=== PATIENT | male | born 1960 | race Caucasian/White ===

== ENCOUNTER 2020-08-13 01:23 | Emergency (ER) | payer OTHER, SELFPAY ==
[2020-08-13 01:42] VITALS: BP 124/75; PULSE 78; RESP 22; TEMP 37.3; O2SAT 95; BMI 41.1
[2020-08-13 01:54] VITALS: BP 127/77; PULSE 74; RESP 20; O2SAT 93
--- NOTE | 2020-08-13 01:57 | XR_ITS ---
PROCEDURE: XR CHEST 2V CLINICAL HISTORY: SOA Covid19 positive COMPARISON: CT CT ANGIO CHEST from 08/13/2020 FINDINGS: The cardiomediastinal silhouette and pulmonary vascularity are within normal limits. There are scattered bilateral multi focal areas of ground-glass infiltrates consistent with Covid19 pneumonia. Mild atelectatic changes are present in the left lower lobe. No acute bony abnormalities. IMPRESSION: There are scattered bilateral multi focal areas of ground-glass infiltrates consistent with Covid19 pneumonia. Mild atelectatic changes are present in the left lower lobe Dictated by: Keshawn Martins MD 08/13/2020 05:12 Keshawn Martins MD in [facility] 08/13/2020 05:12
--- NOTE | 2020-08-13 02:00 | CT_ITS ---
PROCEDURE: CT ANGIO CHEST CLINCIAL INDICATION: SOA w/ COVID 19 COMPARISON: No exams were available for comparison TECHNIQUE: IV Contrast: 70ML Isovue 370 Axial images obtained with sagittal and coronal reformats. All CT scans at the facility use one or more dose reduction, viz: automated exposure control, ma/kV adjustment per patient size (including targeted exams where dose is matched to indication, i.e. head), or iterative reconstruction technique. FINDINGS: HEART AND MEDIASTINAL STRUCTURES: No evidence of pulmonary embolus. There is mild dilatation the ascending thoracic aorta measuring up to 4 cm. No evidence of aortic dissection. There are few small mediastinal lymph nodes. LUNGS AND PLEURAL SPACES: Multifocal areas of ground-glass infiltrates. Consolidation noted in the lower lobes posteriorly. Atelectasis/fibrotic bands in the lingula. These findings are consistent with Covid19 pneumonia. No effusions or cavitation BONY STRUCTURES: No acute bony abnormalities apparent. UPPER ABDOMEN: Unremarkable. ADDITIONAL FINDINGS: Gynecomastia IMPRESSION: Findings compatible with Covid19 pneumonia. No evidence of pulmonary embolus. Dictated by: Keshawn Martins MD 08/13/2020 05:37 Keshawn Martins MD in [facility] 08/13/2020 05:37
--- NOTE | 2020-08-13 02:09 | ECG_ITS ---
APPROVED REPORT Exam: Resting ECG HR:76 bpm ECG Measurements Heart Rate 76 AXES MD 224 P 45 QRSd 106 QRS 29 QT 370 T 46 QTc 416 Conclusion Sinus rhythm with 1st degree AV block Otherwise normal ECG Electronically signed by : Lester Ribeiro, 08/13/2020 18:02:02
[2020-08-13 02:16] LABS: Chloride 100 mmol/L (98-107); Potassium 4.2 mmoL/L (3.5-5.1); Sodium 133 mmol/L (136-145)
[2020-08-13 02:19] LABS: Alanine Aminotransferase 29 U/L (12-78); Albumin Level 4.3 g/dl (3.5-5.0); Albumin/Globulin Ratio 1.3 (1.1-1.8); Alkaline Phosphatase 92 U/L (38-126); Anion Gap 11.2 mEq/L (5-15); Aspartate Amino Transferase 38 U/L (17-59); Bilirubin,Total 0.5 mg/dl (0.2-1.3); Blood Urea Nitrogen 17 mg/dl (9-20); Calcium 9.4 mg/dl (8.4-10.2); Carbon Dioxide 26 mmol/L (22.0-30.0); Creatinine Clearance Estimated 128 mL/min (50-200); Estimated Glomerular Filt Rate 86 ml/min (>60); GFR (African American) 105 ML/MIN (>60); Globulin 3.3 g/dL (1.3-3.2); Glucose 186 mg/dl (74-100); Total Protein,Serum 7.6 g/dl (6.3-8.2)
[2020-08-13 02:23] LABS: Basophils # 0.1 K/mm3 (0-0.2); Basophils % 0.6 % (0.1-2.0); Eosinophils % 0.1 % (0.1-12.0); Hematocrit 46.4 % (42.0-52.0); Hemoglobin 15.7 g/dL (14.1-18.0); Lymphocytes # 1.5 K/mm3 (0.7-4.5); Lymphocytes % 17.5 % (10-50); Mean Corpuscular HGB Conc 33.8 g/dL (31.8-35.4); Mean Corpuscular Hemoglobin 30.1 pg (27.0-31.2); Mean Corpuscular Volume 89.1 fl (80-94); Monocytes # 0.4 K/mm3 (0.1-1.0); Monocytes % 5.1 % (1.7-9.3); Neutrophils # 6.4 K/mm3 (1.8-7.8); Neutrophils % 76.5 % (37.0-80.0); Platelet Count 270 K/mm3 (142-424); Red Cell Distribution Width 13.3 % (11.5-17.5); White Blood Count 8.3 K/mm3 (4.8-10.8)
[2020-08-13 02:25] LABS: C-Reactive Protein 37.7 mg/L (0-4)
[2020-08-13 02:34] LABS: Troponin I < 0.01 ng/ml (0.00-0.034)
[2020-08-13 02:36] LABS: Procalcitonin 0.115 ng/mL (0.0-2.0)
--- NOTE | 2020-08-13 02:37 | HMH.EDHA ---
ED Disposition Clinical Impression: Pneumonia due to COVID-19 virus Headache Qualifiers: Headache type: unspecified Headache chronicity pattern: acute headache Intractability: not intractable Qualified Code(s): R51.9 - Headache, unspecified Disposition: Home, Self-Care Condition on Discharge: Good Instructions: DI for COVID-19 (Suspected or Confirmed ) Additional Instructions: fluids and call your pcp for follo wup Referrals: PCP,No [Primary Care Provider] - - Critical Care Critical Care Time: No Attestation: On 08/13/20, the high probability of a clinically significant, sudden or life threatening deterioration of the following system(s) required my full and direct attention, intervention and personal management. The time I documented below is in addition to time spent performing reported procedures but includes the following listed in this critical care notation. Medical Decision Making - Medical Records Medical records reviewed: Yes: I reviewed the patient's medical records. - Ramesh Inquiry Pt receiving controlled substance: No Vital Signs: 08/13/20 01:42 08/13/20 01:54 08/13/20 02:54 Temperature 99.1 F Temperature Source Oral Pulse Rate [Right] 78 74 64 Respiratory Rate 22 20 18 Blood Pressure [Right Arm] 124/75 127/77 141/79 H Blood Pressure Mean [Right Arm] 91 93 99 Blood Pressure Source [Right Arm] Automatic Cuff Automatic Cuff Automatic Cuff Blood Pressure Position [Right Arm] Supine Sitting Sitting 02 Sat by Pulse Oximetry 95 93 L 94 L Oxygen Delivery Method Room Air Room Air Room Air 08/13/20 03:30 08/13/20 04:00 Temperature Temperature Source Pulse Rate [Right] 74 69 Respiratory Rate 17 17 Blood Pressure [Right Arm] 105/58 L 111/65 Blood Pressure Mean [Right Arm] 73 80 Blood Pressure Source [Right Arm] Automatic Cuff Automatic Cuff Blood Pressure Position [Right Arm] Sitting Sitting 02 Sat by Pulse Oximetry 92 L 93 L Oxygen Delivery Method Room Air Room Air - Lab Data Lab results reviewed: Yes: I reviewed the patient's lab results. Lab Results 08/13/20 01:50: WBC 8.3, RBC 5.20, Hgb 15.7, Hct 46.4, MCV 89.1, MCH 30.1, MCHC 33.8, RDW 13.3, Plt Count 270, MPV 8.0, Neut % (Auto) 76.5, Lymph % (Auto) 17.5, [place] % (Auto) 5.1, Eos % (Auto) 0.1, Baso % (Auto) 0.6, Neut # (Auto) 6.4, Lymph # (Auto) 1.5, [place] # (Auto) 0.4, Eos # (Auto) 0.0, Baso # (Auto) 0.1 08/13/20 01:50: Sodium 133 L, Potassium 4.2, Chloride 100, Carbon Dioxide 26, Anion Gap 11.2, BUN 17, Creatinine 0.90, Estimated Creat Clear 128, Estimated GFR 86, Est GFR ( Amer) 105, Glucose 186 H, Calcium 9.4, Total Bilirubin 0.5, AST 38, ALT 29, Alkaline Phosphatase 92, Troponin I < 0.01, C-Reactive Protein 37.7 H, Total Protein 7.6, Albumin 4.3, Globulin 3.3 H, Albumin/Globulin Ratio 1.3 08/13/20 01:50: SARS-CoV-2 IgG Ab (Rapid) Negative, SARS-CoV-2 IgM Ab (Rapid) Negative 08/13/20 01:50: ESR 19 08/13/20 01:50: Procalcitonin 0.115 Result diagrams: 08/13/20 01:50 08/13/20 01:50 Orders (Tests/Meds): ED MEDICATIONS Generic Name Dose Route Start Last Admin Trade Name Freq PRN Reason Stop Dose Admin Sodium Chloride 1,000 mls @ 999 mls/hr 08/13/20 02:00 08/13/20 01:58 Sod Chlor 0.9% 1000ml Bag IV 08/13/20 03:00 999 mls/hr .Q1H1M AYESHA Administration Discontinued Medications Generic Name Dose Route Start Last Admin Trade Name Freq PRN Reason Stop Dose Admin Dexamethasone Sodium Phosphate 10 mg 08/13/20 01:57 08/13/20 01:58 Dexamethasone 4mg/Ml 5ml Mdv IV 08/13/20 01:58 10 mg ONCE ONE Administration Iopamidol 70 ml 08/13/20 04:05 08/13/20 03:00 Iopamidol-370 (76%);100ml Bottle IV 08/13/20 04:06 70 ml ONCE ONE Administration Sodium Chloride 40 ml 08/13/20 04:05 08/13/20 03:00 0.9 % Sodium Chloride 50 Ml Vial IV 08/13/20 04:06 40 ml ONCE ONE Administration Sodium Chloride 10 ml 08/13/20 04:05 08/13/20 03:00 Sodium Chloride 0.9% 10ml Syr (Rad Only) IV
[2020-08-13 02:43] LABS: Coronavirus 19 IgG Antibody Negative (Negative); Coronavirus 19 IgM Antibody Negative (Negative)
[2020-08-13 02:54] VITALS: BP 141/79; PULSE 64; RESP 18; O2SAT 94
[2020-08-13 02:58] LABS: Erythrocyte Sedimentation Rate 19 mm/hr (0-20)
[2020-08-13 03:30] VITALS: BP 105/58; PULSE 74; RESP 17; O2SAT 92
[2020-08-13 04:00] VITALS: BP 111/65; PULSE 69; RESP 17; O2SAT 93
[2020-08-13 04:51] VITALS: BP 124/68; PULSE 72; RESP 18; TEMP 37.3; O2SAT 94
== END 2020-08-13 04:53 | disposition home or self-care (01) ==
PROVIDERS: Emergency Provider Emergency Medicine
DX: U07.1 COVID-19 (principal); J12.82 Pneumonia due to coronavirus disease 2019
CPT/HCPCS: 71046; 71275; 80053; 84145; 84484; 85025; 85651; 86140; 86328; 93005; 96365; 96375; 99283; Q9967

== ENCOUNTER 2021-02-28 12:53 | Emergency (ER) | payer OTHER, SELFPAY ==
[2021-02-28 15:21] VITALS: BP 143/86; PULSE 84; RESP 20; TEMP 36.9; O2SAT 96; BMI 29.2
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
[2021-02-28 16:14] VITALS: BP 138/82; PULSE 81; RESP 16; TEMP 36.9
== END 2021-02-28 16:14 | disposition home or self-care (01) ==
PROVIDERS: Emergency Provider Nurse Practitioner Family
DX: B34.9 Viral infection, unspecified (principal); Z20.822 Contact with and (suspected) exposure to COVID-19
CPT/HCPCS: 99202; G0463; U0003

== ENCOUNTER 2023-09-18 16:00 | Emergency (ER) | payer OTHER, SELFPAY ==
[2023-09-18] VITALS (7 sets, daily range): BP systolic 130–153; BP diastolic 80–98; PULSE 80–88; RESP 16–17; TEMP 36.7; O2SAT 93–98; BMI 29.5
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
[2023-09-18] MEDS: BUTALB/ACETAMINOPHEN/CAFFEINE 50MG/325MG/40MG TAB 2 EACH PO (17:53)
== END 2023-09-18 18:32 | disposition home or self-care (01) ==
PROVIDERS: Emergency Provider Emergency Medicine
DX: S06.0X0A Concussion without loss of consciousness, initial encounter (principal); R51.9 Headache, unspecified; R53.83 Other fatigue; R63.0 Anorexia; R42 Dizziness and giddiness; W20.8XXA Other cause of strike by thrown, projected or falling object, initial encounter
CPT/HCPCS: 70450; 72125; 99285

== ENCOUNTER 2024-09-02 13:35 | Emergency (ER) | payer OTHER, SELFPAY ==
[2024-09-02 13:36] VITALS: BP 154/86; PULSE 96; RESP 19; TEMP 36.9; O2SAT 100; BMI 30.8
[2024-09-02 13:39] VITALS: BP 154/86; PULSE 101; O2SAT 98
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
--- NOTE | 2024-09-02 13:47 | HMH.EDGENADL ---
Discharge Plan Disposition Patient Disposition: Xfer Short-Term Hosp Condition: Good Referrals Follow up/Referrals: Provider,Referral, [Primary Care Provider] - See instructions Activity Restrictions/Add. Instructions Additional Instructions/Restrictions: To the [facility] emergency department via EMS care of Dr. Zimmerman Clinical Impressions Clinical Impression: Open injury of radial artery, Laceration Stand Alone Forms Stand Alone Forms: Transfer Record - ED Instructions Patient Instructions: DI for Laceration Repair Print Language Print Language: Slovenian Discharge ED Provider: Gabriel Benson General Adult HPI <UYEN Catalan - Last Filed: 09/02/24 14:07> General Chief complaint: Wound/Laceration Stated complaint: cut left thumb with boxing and pressing supervisor Time Seen by Provider: 09/02/24 13:47 Mode of Arrival: Ambulatory Source of Information: Patient Limitations: No Limitations Description of Symptoms (Recalled from ER Triage Doc. by RN): pt presents to Ed with c/o laceration from a boxing and pressing supervisor on his left hand. pt reports that he was using a boxcutter to cut a ziptie, the kadie slipped off the tie and hit his left hand. happened approx 15-20 mins ago. pt reports to feeling lightheaded and headache coming on. pt has unknown tetanus hx. History of Present Illness HPI narrative: Patient presents for bleeding laceration to his left hand. Patient was cutting something with a boxing and pressing supervisor and it slipped essentially stabbing him at the lateral aspect between the the wrist and the first MCP joint of the left hand. Patient remains neurovascularly intact has full range of motion and does have vigorous venous bleeding at the moment but pulsatile bleeding is not observed. Patient states that it did and was pulsatile when he actually did it. Related Data Allergies Allergy/AdvReac Type Severity Reaction Status Date / Time No Known Allergies Allergy Verified 08/13/20 01:55 PFS <UYEN Catalan - Last Filed: 09/02/24 14:07> [facility] Disclaimer: The information contained in this section may have been updated after the patient was seen, as this information can be updated by other users. Social History Smoking Status: Never smoker alcohol intake: never current occupational status: employed Travel in the last 8 weeks: None Have you lived/traveled outside [place] in past 30 days?: No Contact w/someone who lives/traveled outside US past 30 days?: No Exposure to someone with infectious disease in past 14 days?: No Do you have a fever (greater than 100.4 F or 38 C)?: No Have you tested positive for COVID-19: No Exposed to someone with COVID-19 in past 14 days?: No Do you have a sore throat?: No Do you have a cough?: No Do you have any weakness?: No Do you have any diarrhea?: No Are you experiencing any unusual bleeding?: No Do you have any muscle aches/pain?: No Do you have any abdominal pain?: No Are you experiencing loss of taste or smell?: No Other Medical History Have you received the Flu Vaccine for this season: No Have you received the Pneumonia Vaccine: No <UYEN Catalan - Last Filed: 09/02/24 14:07> ROS Obtained: Yes Systems reviewed as appropriate & no additional complaints except as documented Physical Exam <UYEN Catalan - Last Filed: 09/02/24 14:07> General General appearance: alert and in no apparent distress Head Head exam: atraumatic and normal inspection Eye Eye exam: Present normal appearance, PERRL and EOMI ENT ENT exam: Present normal exam, normal oropharynx and mucous membranes moist Neck Neck exam: Present lymphadenopathy Chest Chest inspection: Present normal inspection and symmetric chest wall rise Respiratory Respiratory exam: Present normal lung sounds bilaterally Cardiovascular Cardiovascular exam: Present regular rate Abdominal Exam Abdominal exam: Present soft and normal bowel sounds; Absent tenderness, guarding or rebound Extremities Exam Extremities exam: Present normal inspection and full ROM Neurological Exam Neurological exam: Present alert and oriented X3 Psychiatric Psychiatric exam: Present normal affect and normal mood Skin Skin exam: Present warm, dry and normal color Lymphatic Lymphatic Findings: no adenopathy Medical Decision Making <UYEN Catalan - Last Filed: 09/02/24 14:07> Medical Records Screening: Per USPSTF and CDC recommendations, given the prevalence of disease in our region, it is our hospital?s policy to screen for HIV and viral Hepatitis for all patients aged 18 and over and those with ongoing risk factors. Ramesh Inquiry Pt receiving controlled substance: No Vital Signs: 09/02/24 13:36 09/02/24 13:39 09/02/24 14:02 Temperature 98.4 F Temperature Source Oral Pulse Rate 101 H 83 Pulse Rate [Left Radial] 96 H Respiratory Rate 19 Blood Pressure 154/86 H 125/82 Blood Pressure [Right Arm] 154/86 H Blood Pressure Mean 118 Blood Pressure Mean [Right Arm] 108 02 Sat by Pulse Oximetry 100 98 93 L Oxygen Delivery Method Room Air Room Air Room Air 09/02/24 14:18 Temperature 98.0 F Temperature Source Pulse Rate 72 Pulse Rate [Left Radial] Respiratory Rate 16 Blood Pressure 125/82 Blood Pressure [Right Arm] Blood Pressure Mean Blood Pressure Mean [Right Arm] 02 Sat by Pulse Oximetry Oxygen Delivery Method Lab Data Lab results reviewed: Yes I reviewed the patient's lab results. Lab Results 09/02/24 13:45: WBC 11.6 H, RBC 5.09, Hgb 14.9, Hct 44.9, MCV 88.2, MCH 29.3, MCHC 33.2, RDW 13.2, Plt Count 382, MPV 9.9, Neut % (Auto) 54.3, Lymph % (Auto) 33.0, [place] % (Auto) 10.1 H, Eos % (Auto) 0.9, Baso % (Auto) 0.7, Neut # (Auto) 6.3, Lymph # (Auto) 3.8, Weston # (Auto) 1.2 H, Eos # (Auto) 0.1, Baso # (Auto) 0.1, PT 10.2, INR 0.92, Sodium 137, Potassium 4.6, Chloride 96 L, Carbon Dioxide 26, Anion Gap 19.6 H, BUN 17, Creatinine 1.10, Estimated Creat Clear 106, Estimated GFR 68, Est GFR ( Amer) 82, Glucose 181 H, Calcium 9.7, Total Bilirubin 0.4, AST 34, ALT 33, Alkaline Phosphatase 66, Total Protein 7.8, Albumin 5.1 H, Globulin 2.7, Albumin/Globulin Ratio 1.9 H, HCV Ab [place] w/Rflx PCR Qn Negative, HIV Ag/Ab Combo Qual Negative 09/02/24 13:49: VBG pH 7.36, VBG pCO2 37.9, VBG pO2 46.1 H, VBG HCO3 21.1 L, VBG Total CO2 22.3 L, VBG O2 Saturation 81.3 H, VBG Base Excess -4.3 L, VBG Lactic Acid 1.9 09/02/24 13:45 09/02/24 13:45 Orders (Tests/Meds): ED MEDICATIONS Discontinued Medications Generic Name Dose Route Start Last Admin Trade Name Freq PRN Reason Stop Dose Admin Cefazolin Sodium 2 gm/ Sodium 100 mls @ 200 mls/hr 09/02/24 14:05 09/02/24 14:11 Chloride IV 09/02/24 14:34 200 mls/hr PREOP ONE Administration Ketorolac Tromethamine 15 mg 09/02/24 14:17 09/02/24 14:05 Ketorolac 30mg/Ml Vial IV 09/02/24 14:18 15 mg ONCE ONE Administration Lorazepam 1 mg 09/02/24 14:11 09/02/24 14:16 Lorazepam 2mg/Ml Vial IV 09/02/24 14:12 1 mg ONCE ONE Administration Ondansetron HCl 4 mg 09/02/24 14:17 09/02/24 14:05 Ondansetron 4mg/2ml Vial IV 09/02/24 14:18 4 mg ONCE ONE Administration Sodium Chloride 10 ml 09/02/24 14:11 Sodium Chloride 0.9% 10ml Vial IV 10/02/24 14:10 NEEDED PRN to Dilute Lorazepam inj Tetanus/Reduced Diphtheria/Acell Pertussis 0.5 ml 09/02/24 13:42 09/02/24 14:06 Tet/Diphth/Pert-Adult 0.5ml Syringe IM 09/02/24 13:43 0.5 ml .ONCE ONE Administration ORDERS Category Date Time Status CBC w/Auto Diff [Complete Blood Count Auto Diff] Stat Lab 09/02/24 13:45 Completed CMP [Comprehensive Metabolic Panel] Stat Lab 09/02/24 13:45 Completed HIV Combo Stat Lab 09/02/24 13:45 Completed Hepatitis C Ab Qual. W/ RFX Stat Lab 09/02/24 13:45 Completed PT INR [Prothrombin Time INR] Stat Lab 09/02/24 13:45 Completed VBG [Venous Blood Gas] Stat RT 09/02/24 13:49 Completed Medical Decision Narrative: In summary patient is a 63-year-old male who presents to the emergency department for evaluation of laceration to the left hand. Patient is initially hypertensive at 154/86 with a pulse of 96 sinus rhythm on the monitor upon arrival, afebrile at 90.4. Physical exam is remarkable for brisk venous bleeding at the dorsal lateral aspect of the first MCP between the wrist and the first MCP joint. There appears to be a subcutaneous hematoma developing. Bleeding is initially controlled with direct pressure. This is likely a branch of the radial artery.. Differential diagnosis includes venous versus arterial injury. Initial workup was considered however due to the serious nature ZHU here is deferred. Initial interventions include initially direct pressure applied by myself and then I applied a figure 8 bandage around the thumb and wrist with significant direct pressure over the site and time of tourniquet application was 1340. Additionally suspended the left upper extremity via fingertrap to keep the hand above the level of the heart. Given that this is an potential open arterial injury I gave the patient a dose of Ancef prior to transport. While I was applying the tourniquet Dr. Benson had an interactive discussion with Dr. Zimmerman at the [facility] about patient presentation findings and patient management and he has been accepted to [facility] emergency department evaluation by hand surgery. <Gabriel Benson MD - Last Filed: 09/04/24 17:45> Vital Signs: 09/02/24 13:36 09/02/24 13:39 09/02/24 14:02 Temperature 98.4 F Temperature Source Oral Pulse Rate 101 H 83 Pulse Rate [Left Radial] 96 H Respiratory Rate 19 Blood Pressure 154/86 H 125/82 Blood Pressure [Right Arm] 154/86 H Blood Pressure Mean 118 Blood Pressure Mean [Right Arm] 108 02 Sat by Pulse Oximetry 100 98 93 L Oxygen Delivery Method Room Air Room Air Room Air 09/02/24 14:18 Temperature 98.0 F Temperature Source Pulse Rate 72 Pulse Rate [Left Radial] Respiratory Rate 16 Blood Pressure 125/82 Blood Pressure [Right Arm] Blood Pressure Mean Blood Pressure Mean [Right Arm] 02 Sat by Pulse Oximetry Oxygen Delivery Method Lab Data Lab Results 09/02/24 13:45: WBC 11.6 H, RBC 5.09, Hgb 14.9, Hct 44.9, MCV 88.2, MCH 29.3, MCHC 33.2, RDW 13.2, Plt Count 382, MPV 9.9, Neut % (Auto) 54.3, Lymph % (Auto) 33.0, Weston % (Auto) 10.1 H, Eos % (Auto) 0.9, Baso % (Auto) 0.7, Neut # (Auto) 6.3, Lymph # (Auto) 3.8, [place]on # (Auto) 1.2 H, Eos # (Auto) 0.1, Baso # (Auto) 0.1, PT 10.2, INR 0.92, Sodium 137, Potassium 4.6, Chloride 96 L, Carbon Dioxide 26, Anion Gap 19.6 H, BUN 17, Creatinine 1.10, Estimated Creat Clear 106, Estimated GFR 68, Est GFR ( Amer) 82, Glucose 181 H, Calcium 9.7, Total Bilirubin 0.4, AST 34, ALT 33, Alkaline Phosphatase 66, Total Protein 7.8, Albumin 5.1 H, Globulin 2.7, Albumin/Globulin Ratio 1.9 H, HCV Ab [place] w/Rflx PCR Qn Negative, HIV Ag/Ab Combo Qual Negative 09/02/24 13:49: VBG pH 7.36, VBG pCO2 37.9, VBG pO2 46.1 H, VBG HCO3 21.1 L, VBG Total CO2 22.3 L, VBG O2 Saturation 81.3 H, VBG Base Excess -4.3 L, VBG Lactic Acid 1.9 Orders (Tests/Meds): ED MEDICATIONS Discontinued Medications Generic Name Dose Route Start Last Admin Trade Name Freq PRN Reason Stop Dose Admin Cefazolin Sodium 2 gm/ Sodium 100 mls @ 200 mls/hr 09/02/24 14:05 09/02/24 14:11 Chloride IV 09/02/24 14:34 200 mls/hr PREOP ONE Administration Ketorolac Tromethamine 15 mg 09/02/24 14:17 09/02/24 14:05 Ketorolac 30mg/Ml Vial IV 09/02/24 14:18 15 mg ONCE ONE Administration Lorazepam 1 mg 09/02/24 14:11 09/02/24 14:16 Lorazepam 2mg/Ml Vial IV 09/02/24 14:12 1 mg ONCE ONE Administration Ondansetron HCl 4 mg 09/02/24 14:17 09/02/24 14:05 Ondansetron 4mg/2ml Vial IV 09/02/24 14:18 4 mg ONCE ONE Administration Sodium Chloride 10 ml 09/02/24 14:11 Sodium Chloride 0.9% 10ml Vial IV 10/02/24 14:10 NEEDED PRN to Dilute Lorazepam inj Tetanus/Reduced Diphtheria/Acell Pertussis 0.5 ml 09/02/24 13:42 09/02/24 14:06 Tet/Diphth/Pert-Adult 0.5ml Syringe IM 09/02/24 13:43 0.5 ml .ONCE ONE Administration ORDERS Category Date Time Status CBC w/Auto Diff [Complete Blood Count Auto Diff] Stat Lab 09/02/24 13:45 Completed CMP [Comprehensive Metabolic Panel] Stat Lab 09/02/24 13:45 Completed HIV Combo Stat Lab 09/02/24 13:45 Completed Hepatitis C Ab Qual. W/ RFX Stat Lab 09/02/24 13:45 Completed PT INR [Prothrombin Time INR] Stat Lab 09/02/24 13:45 Completed VBG [Venous Blood Gas] Stat RT 09/02/24 13:49 Completed Medical Decision Narrative: In summary patient is a 63-year-old male who presents to the emergency department for evaluation of laceration to the left hand. Patient is initially hypertensive at 154/86 with a pulse of 96 sinus rhythm on the monitor upon arrival, afebrile at 90.4. Physical exam is remarkable for brisk venous bleeding at the dorsal lateral aspect of the first MCP between the wrist and the first MCP joint. There appears to be a subcutaneous hematoma developing. Bleeding is initially controlled with direct pressure. This is likely a branch of the radial artery.. Differential diagnosis includes venous versus arterial injury. Initial workup was considered however due to the serious nature ZHU here is deferred. Initial interventions include initially direct pressure applied by myself and then I applied a figure 8 bandage around the thumb and wrist with significant direct pressure over the site and time of tourniquet application was 1340. Additionally suspended the left upper extremity via fingertrap to keep the hand above the level of the heart. Given that this is an potential open arterial injury I gave the patient a dose of Ancef prior to transport. While I was applying the tourniquet Dr. Benson had an interactive discussion with Dr. Zimmerman at the [facility] about patient presentation findings and patient management and he has been accepted to [facility] emergency department evaluation by hand surgery. I was consulted by the TAMAR, and we discussed the complexity of the problems being addressed.I approved the treatment and management plan for this patient?s care in the Emergency Department, thus performing a substantive portion of the medical decision making.Signed, Gabriel Benson MD [facility] Critical Care <UYEN Catalan - Last Filed: 09/02/24 14:07> Critical Care Time Critical Care Time: Yes Attestation: On 09/02/24, the high probability of a clinically significant, sudden or life threatening deterioration of the following system(s) required my full and direct attention, intervention and personal management. The time I documented below is in addition to time spent performing reported procedures but includes the following listed in this critical care notation. Total Time Total Critical Care Time: 35
--- NOTE | 2024-09-02 13:48 | PC.NURSE ---
speaking with md
--- NOTE | 2024-09-02 13:49 | PC.NURSE ---
I notified Marly in respiratory that I sent up a green top for a VBG.
[2024-09-02 13:56] LABS: Lactate Venous 1.9 mmol/L (0.4-2.0); VBG Base Excess -4.3 mmol/L (-2.4-2.3); VBG HCO3 21.1 mmol/L (23-30); VBG Oxygen Saturation 81.3 % (50-70); VBG PCO2 37.9 mmol/L (35-51); VBG PH 7.36 mmol/L (7.31-7.41); VBG PO2 46.1 mmol/L (28-40); VBG Total CO2 22.3 mmol/L (23-27)
[2024-09-02 13:58] LABS: Basophils # 0.1 K/mm3 (0-0.2); Basophils % 0.7 % (0.1-2.0); Eosinophils # 0.1 K/mm3 (0.0-0.4); Eosinophils % 0.9 % (0.1-12.0); Hematocrit 44.9 % (42.0-52.0); Hemoglobin 14.9 g/dL (14.1-18.0); Lymphocytes # 3.8 K/mm3 (0.7-4.5); Mean Corpuscular HGB Conc 33.2 g/dL (31.8-35.4); Mean Corpuscular Hemoglobin 29.3 pg (27.0-31.2); Mean Corpuscular Volume 88.2 fl (80-94); Mean Platelet Volume 9.9 fl (7.4-10.4); Monocytes # 1.2 K/mm3 (0.1-1.0); Monocytes % 10.1 % (1.7-9.3); Neutrophils # 6.3 K/mm3 (1.8-7.8); Neutrophils % 54.3 % (37.0-80.0); Platelet Count 382 K/mm3 (142-424); Red Blood Count 5.09 M/mm3 (4.60-6.20); Red Cell Distribution Width 13.2 % (11.5-17.5); White Blood Count 11.6 K/mm3 (4.8-10.8)
[2024-09-02 14:02] VITALS: BP 125/82; PULSE 83; O2SAT 93
[2024-09-02 14:04] LABS: Albumin Level 5.1 g/dl (3.5-5.0); Albumin/Globulin Ratio 1.9 (1.1-1.8); Alkaline Phosphatase 66 U/L (38-126); Bilirubin,Total 0.4 mg/dl (0.2-1.3); Blood Urea Nitrogen 17 mg/dl (9-20); Carbon Dioxide 26 mmol/L (22.0-30.0); Creatinine Clearance Estimated 106 mL/min (50-200); Estimated Glomerular Filt Rate 68 ml/min (>60); GFR (African American) 82 ML/MIN (>60); Globulin 2.7 g/dL (1.3-3.2); Glucose 181 mg/dl (74-100); INR 0.92 (0.9-1.1); Prothrombin Time 10.2 seconds (9.2-12.1); Total Protein,Serum 7.8 g/dl (6.3-8.2)
[2024-09-02 14:05] LABS: Alanine Aminotransferase 33 U/L (12-78); Anion Gap 19.6 mEq/L (5-15); Aspartate Amino Transferase 34 U/L (17-59); Calcium 9.7 mg/dl (8.4-10.2); Chloride 96 mmol/L (98-107); Potassium 4.6 mmoL/L (3.5-5.1); Sodium 137 mmol/L (136-145)
[2024-09-02] MEDS: KETOROLAC 30MG/ML VIAL 15 MG IV (14:05)
[2024-09-02] MEDS: ONDANSETRON 4MG/2ML VIAL 4 MG IV (14:05)
[2024-09-02] MEDS: TET/DIPHTH/PERT-ADULT 0.5ML SYRINGE 0.5 ML IM (14:06)
[2024-09-02] MEDS: CEFAZOLIN SODIUM 2 GM in 0.9 % SODIUM CHLORIDE 100 ML IV (14:11)
--- NOTE | 2024-09-02 14:14 | PC.NURSE ---
ems is here for transfer to [place]
[2024-09-02] MEDS: LORazepam 2MG/ML VIAL 1 MG IV (14:16)
[2024-09-02 14:18] VITALS: BP 125/82; PULSE 72; RESP 16; TEMP 36.7
[2024-09-02 14:55] LABS: HIV Combo NEGATIVE (Negative)
[2024-09-02 15:02] LABS: Hepatitis C Ab Qual. W/ RFX NEGATIVE (Negative)
== END 2024-09-02 14:19 | disposition short-term general hospital (02) ==
PROVIDERS: Physician Assistant; Emergency Provider Emergency Medicine
DX: S55.102A Unspecified injury of radial artery at forearm level, left arm, initial encounter (principal); S61.412A Laceration without foreign body of left hand, initial encounter; M79.642 Pain in left hand; R42 Dizziness and giddiness; R51.9 Headache, unspecified; W26.0XXA Contact with knife, initial encounter; Y93.89 Activity, other specified; Y92.9 Unspecified place or not applicable; Z23 Encounter for immunization
CPT/HCPCS: 80053; 82803; 85025; 85610; 86803; 87389; 90471; 90715; 96365; 96374; 96375; 99291; J0690; J1885; J2060; J2405